=== PATIENT | male | born 1960 | race Caucasian/White ===

== ENCOUNTER 2019-04-22 18:54 | Emergency (ER) | payer OTHER ==
[~2019-04-22] VITALS: Ht 154.9 cm; Wt 74.8 kg
[2019-04-22 19:15] VITALS: BP_SYST 154
--- NOTE | 2019-04-22 19:15 | NUR ---
Pt ambulatory to bed 2 for evaluation
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
--- NOTE | 2019-04-22 20:25 | NUR ---
Pt taken to Radiology in stable condition
--- NOTE | 2019-04-22 20:39 | NUR ---
Pt back from Radiology, well tolerated
[2019-04-22 21:35] VITALS: BP_SYST 142
--- NOTE | 2019-04-22 21:35 | NUR ---
Patient given written and verbal discharge instructions and verbalizes understanding. ER MD discussed with patient the results and treatment provided. Patient in stable condition. ID arm band removed. Patient educated on pain management and to follow up with PMD. Pain Scale 0/10 Opportunity for questions provided and answered.
== END 2019-04-22 21:35 | disposition home or self-care (01) ==
LOC: SED 18:54
DX: S40.011A Contusion of right shoulder, initial encounter (principal); V49.50XA Passenger injured in collision with unspecified motor vehicles in traffic accident, initial encounter; Y93.89 Activity, other specified; Y92.89 Other specified places as the place of occurrence of the external cause; Y99.8 Other external cause status
CPT/HCPCS: 71045; 99283

== ENCOUNTER 2022-12-16 19:57 | Emergency (ER) | payer MEDICAID, OTHER ==
[~2022-12-16] VITALS: Ht 154.9 cm; Wt 72.6 kg
[2022-12-16 20:05] VITALS: BP_SYST 146
--- NOTE | 2022-12-16 20:05 | NUR ---
Triaged and placed patient back to the waiting room. No acute respiratory distress at this time. VSS. Informed patient to notify ED staff for any changes in condition or worsening of symptoms while waiting to be seen by a provider. Patient verbalized understanding.
--- NOTE | 2022-12-16 20:17 | NUR ---
Swabbed patient for Covid Shahida and Influenza A&B antigen as ordered by Dr. Mcpherson. Patient tolerated the procedure well. Specimen dropped off at the lab.
[2022-12-16 20:52] LABS: BASOPHILS # (AUTO) 0.1 K/uL (0.0-0.2); BASOPHILS % (AUTO) 0.7 % (0.0-2.0); EOSINOPHILS % (AUTO) 0.4 % (0.0-4.0); HEMATOCRIT 45.5 % (36-54); HEMOGLOBIN 15.6 g/dL (14.0-18.0); LYMPHOCYTES # (AUTO) 0.8 K/uL (1.0-5.5); LYMPHOCYTES % (AUTO) 8.4 % (20.5-51.5); MEAN CORPUSCULAR HEMOGLOBIN 30 pg (27-31); MEAN CORPUSCULAR HGB CONC 34 % (32-36); MEAN CORPUSCULAR VOLUME 88 fL (79.0-98.0); MONOCYTES # (AUTO) 0.6 K/uL (0.0-1.0); MONOCYTES % (AUTO) 6.1 % (1.7-9.3); NEUTROPHILS # (AUTO) 8.3 K/uL (1.8-7.7); NEUTROPHILS % (AUTO) 84.4 % (40.0-70.0); PLATELET COUNT (AUTO) 149 K/uL (130-430); RED BLOOD CELL COUNT(AUTO) 5.16 MIL/uL (4.2-6.2); RED CELL DISTRIBUTION WIDTH 13.7 % (9.0-15.0); WHITE BLOOD COUNT (AUTO) 9.8 K/uL (4.8-10.8)
[2022-12-16 21:09] LABS: CALCIUM 8.4 mg/dL (8.4-11.0); CREATININE 1.23 mg/dL (0.55-1.30)
[2022-12-16 21:13] LABS: ALBUMIN 3.8 g/dL (3.4-4.8); TOTAL BILIRUBIN 0.9 mg/dL (0.0-1.0)
--- NOTE | 2022-12-16 21:52 | NUR ---
Placed in room 05 . Placed on advertising sales associate, blood pressure machine and pulse oximeter. To gown for exam. Side rails up. Report given to MARVIN MOMIN
--- NOTE | 2022-12-16 22:07 | NUR ---
PT BIB FROM HOME C/O LOWER ABD PAIN 12/06 X 2 DAYS. PT DENIES N, V AND DIARRHEA. STATES CONSTIPATED X2DAYS. PT DENIES OTHER HEALTH HX. PT IS AAO X 4. PT IS RESTING COMFORTABLY IN BED WITH RAILS UP BEDSIDE.
--- NOTE | 2022-12-16 22:10 | NUR ---
ER at bedside examining patient.
[2022-12-16] MEDS ORDERED: ONDANSETRON HCL 4 MG/2 ML VIAL IVP ONE (22:15)
[2022-12-16] MEDS ORDERED: MORPHINE 4 MG INJ. 4 MG/ML VIAL IVP ONE (22:15)
[2022-12-16 22:41] LABS: BILIRUBIN,URINE NEGATIVE (NEGATIVE); CLARITY/URINE CLEAR (CLEAR); COLOR,URINE YELLOW (YELLOW); GLUCOSE,URINE NEGATIVE (NEGATIVE); KETONES,URINE NEGATIVE (NEGATIVE); LEUKOCYTE ESTERASE ,URINE NEGATIVE (NEGATIVE); NITRITE, URINE NEGATIVE (NEGATIVE); PH,URINE 5.5 (5.0-8.0); PROTEIN URINE NEGATIVE (NEGATIVE); UROBILINOGEN,URINE 0.2 (0.2-1.0)
[2022-12-16 22:52] LABS: BLOOD, URINE TRACE (NEGATIVE)
[2022-12-16 23:23] LABS: BACTERIA,URINE RARE /HPF (None Seen); WBC,URINE NONE SEEN /HPF (0-3)
[2022-12-16] MEDS ORDERED: PIPERACILLIN/TAZO 3.375 GM in NS 50 ML IV ONE (23:30)
[2022-12-16] MEDS ORDERED: IBUP-1969 PO (23:34)
[2022-12-16] MEDS ORDERED: AUG875 PO (23:34)
[2022-12-16] MEDS ORDERED: METR-154 PO (23:36)
[2022-12-16] MEDS ORDERED: PIPERACILLIN/TAZOBACTAM 3.375 GM/VIAL (ZOSYN) IV ONE (23:54)
--- NOTE | 2022-12-17 00:47 | NUR ---
Patient given written and verbal discharge instructions and verbalizes understanding. ER MD discussed with patient the results and treatment provided. Patient in stable condition. ID arm band removed. IV catheter removed intact and dressing applied, no active bleeding. Rx of AUGMENTIN IBUPROFEN AND METRONIDAZOLE given. Patient educated on DIVERTICULITIS and to follow up with PMD. Pain Scale . Opportunity for questions provided and answered. Medication side effect fact sheet provided.
[2022-12-17 00:48] VITALS: BP_SYST 146
== END 2022-12-17 00:48 | disposition home or self-care (01) ==
LOC: SED 19:57
DX: K57.92 Diverticulitis of intestine, part unspecified, without perforation or abscess without bleeding (principal); R10.32 Left lower quadrant pain; R50.9 Fever, unspecified; R51.9 Headache, unspecified; Z79.899 Other long term (current) drug therapy; Z20.822 Contact with and (suspected) exposure to COVID-19
CPT/HCPCS: 99285; 74176; 96365; 96375; 87426; 80053; 81000; 83690; 85025; 87040; 36415; 76376; 87804 ×2; J2405; J2543; J2270

== ENCOUNTER 2023-03-26 10:50 | Emergency (ER) | payer MEDICAID ==
[~2023-03-26] VITALS: Ht 165.1 cm; Wt 72.6 kg
[~2023-03-26 10:50] MED LIST: AUG875 PO; IBUP-1969 PO; METR-154 PO
[2023-03-26 10:53] VITALS: BP_SYST 157; PULSE 71; RESP 18; TEMP 98.3; O2SAT 98
[2023-03-26 11:29] LABS: COVID19 ANTIGEN SOFIA FIA NEGATIVE (NEGATIVE)
[2023-03-26 11:32] LABS: INFLUENZA TYPE A negative (NEGATIVE); INFLUENZA TYPE B NEGATIVE (NEGATIVE)
[2023-03-26] MEDS ORDERED: ALBMDI INH (13:04)
[2023-03-26] MEDS ORDERED: AZIT-93 PO (13:04)
[2023-03-26] MEDS ORDERED: PRED20TA PO (13:04)
[2023-03-26 13:29] VITALS: BP_SYST 157; PULSE 71; RESP 18; TEMP 98.3; O2SAT 98
== END 2023-03-26 13:28 | disposition home or self-care (01) ==
LOC: SED 10:50
DX: R05.9 Cough, unspecified (principal); R06.2 Wheezing; R09.81 Nasal congestion; Z79.899 Other long term (current) drug therapy; Z20.822 Contact with and (suspected) exposure to COVID-19
CPT/HCPCS: 36415; 71046-TC; 99284